=== PATIENT | male | born 1985 | race Caucasian/White ===

== ENCOUNTER 2021-02-24 06:43 | Emergency (ER) | payer MEDICAID, OTHER ==
[~2021-02-24] VITALS: Ht 190.5 cm; Wt 100.0 kg
[2021-02-24 06:47] VITALS: BP 152/104
[2021-02-24] MEDS ORDERED: LORazepam 1 MG tablet PO ONE (07:10)
[2021-02-24] MEDS ORDERED: TRAZ-256 PO (07:11)
== END 2021-02-24 07:24 | disposition home or self-care (01) ==
LOC: ER 06:44
DX: F41.9 Anxiety disorder, unspecified (principal); R20.0 Anesthesia of skin; G47.00 Insomnia, unspecified; Z72.89 Other problems related to lifestyle; Z88.8 Allergy status to other drugs, medicaments and biological substances; Z79.899 Other long term (current) drug therapy
CPT/HCPCS: 99283